=== PATIENT | male | born 1980 | race Caucasian/White ===

== ENCOUNTER → 2017-06-16 | Outpatient (CLI) | payer MEDICAID ==
[2017-06-16 10:46] LABS: Basophils % (A) 0 %; CH 31.3; CHCM 33.7; Eosinophils # (A) 0.1 k/uL (0-0.7); Eosinophils % (A) 1 %; HCT 49.2 % (39.0-53.0); HDW 2.48; HGB 16.3 gm/dL (13.0-17.5); Luc # (Auto) 0.16; Luc % (Auto) 2; Lymphocytes # (A) 2.7 k/uL (1.0-4.8); Lymphocytes % (A) 40 %; MCH 30.8 pg (25.0-35.0); MCHC 33.1 g/dL (31.0-37.0); MCV 93.2 fL (80.0-100.0); Mean Platelet Volume 7.2; Monocytes # (A) 0.3 k/uL (0-1.0); Monocytes % (A) 5 %; Neutrophils # (A) 3.5 k/uL (1.3-7.7); Neutrophils % (A) 51 %; RBC 5.27 m/uL (4.30-5.90); RDW 12.3 % (11.5-15.5); WBC 6.8 k/uL (3.8-10.6); WBC (Perox) 6.64
[2017-06-16 10:49] LABS: ALT 50 U/L (21-72); AST 28 U/L (17-59); Alkaline Phosphatase 66 U/L (38-126); Anion Gap 10 mmol/L; Blood Urea Nitrogen 15 mg/dL (9-20); Calcium 9.5 mg/dL (8.4-10.2); Carbon Dioxide 28 mmol/L (22-30); Chloride 104 mmol/L (98-107); Cholesterol 206 mg/dL (<200); Glucose 81 mg/dL (74-99); HDL Cholesterol 45 mg/dL (40-60); Non-African American GFR(MDRD) >60 (>60 ml/min/1.73 sqM); Potassium 4.7 mmol/L (3.5-5.1); Sodium 142 mmol/L (137-145); Total Protein 7.5 g/dL (6.3-8.2)
== END | disposition home or self-care (01) ==
LOC: LABWHC1 09:44
PROVIDERS: ATTEND Family Medicine
DX: Z00.00 Encounter for general adult medical examination without abnormal findings (principal)
CPT/HCPCS: 36415; 80053; 80061; 82306; 84443; 85025

== ENCOUNTER → 2024-07-19 | Outpatient (CLI) | payer MEDICAID ==
--- NOTE | 2024-07-19 21:10 | CT ---
EXAMINATION TYPE: CT kidney stone wo con DATE OF EXAM: 07/19/2024 COMPARISON: None INDICATION: Left side flank pain. Suspected renal stone. Hx of Renal stones. DLP: 640.5 mGycm, Automated exposure control for dose reduction was used. CONTRAST: 0 mL of Isovue 300. Study performed without Oral Contrast TECHNIQUE: Axial images were obtained from above the diaphragm to the pubic rami in the axial plane a t 5 mm thick sections. Reconstructed images are reviewed on the computer in the coronal plane. FINDINGS: Limited CT sections are obtained the lung bases. The lung bases are clear. CT ABDOMEN: Adjacent to the aorta at the level of the inferior pole left kidney is a cystlike structu re measuring 2.5 cm and 4 Hounsfield units. Mesenteric cyst could be considered. Recommend additional evaluation with ultrasound. Liver: Normal Spleen: Normal Pancreas: Normal Adrenal glands: The adrenal glands are normal. Gallbladder: Normal Kidneys: No masses are evident. No hydronephrosis is present. There is a 4.3 cm cyst measuring 4 Ho unsfield units of 4.3 cm a superior pole right kidney. There is a 0.3 cm nonobstructing renal calcif ication at the superior pole left kidney. There is a 0.2 cm calcification mid posterior left kidney. Aorta: Normal Inferior vena cava: Normal. CT PELVIS: Loops of bowel within the abdomen and pelvis are normal. This study is without oral contrast limi ts the bowel evaluation. Appendix: Normal as visualized. Urinary bladder: Normal. Genitourinary structures: Prostate is enlarged and contains calcification. Osseous structures: No suspicious lytic or sclerotic lesions. IMPRESSION: 1. Punctate nonobstructing left renal stones. No hydronephrosis or hydroureter evident. 2. There is a periaortic cystlike structure at the level of the inferior pole left kidney. Mesenteric cyst could be considered. Recommend additional workup with ultrasound. Abdomen MRI could be performe d. [facility], Workstation: [facility], 07/19/2024 9:07 PM
== END | disposition home or self-care (01) ==
LOC: RADCTMAIN 15:28
PROVIDERS: ATTEND Internal Medicine
CPT/HCPCS: 74176

== ENCOUNTER → 2025-01-22 | Day surgery (SDC) | payer MEDICAID ==
[~2025-01-22] MED LIST: LIDOCAINE 1% (10MG/ML) FOR IV START INTRADERMA PRN; LIDOCAINE 1% INJ 10MG/ML (20 ML MDV) ONE; PROPOFOL 10 MG/ML 20 ML VIAL IV ONE
[2025-01-22 08:52] VITALS: TEMP 98
[2025-01-22] MEDS: IV FLUID CONTINUATION 1,000 ML IV ONE (08:58)
[2025-01-22] MEDS: LACTATED RINGERS 1,000 ML IV SCH (08:59)
--- NOTE | 2025-01-22 09:19 | P.GSHP ---
History of Present Illness H&P Date: 01/22/25 Chief Complaint: Colon cancer screening 44-year-old male here for colonoscopy. He has not had 1 previously. No bowel complaints. No family history of colon cancer. Past Medical History Additional Past Medical History / Comment(s): kidney stones History of Any Multi-Drug Resistant Organisms: None Reported Past Surgical History: No Surgical Hx Reported Additional Past Surgical History / Comment(s): pilonidal cyst removed Past Anesthesia/Blood Transfusion Reactions: No Reported Reaction Smoking Status: Never smoker Medications and Allergies Home Medications Medication Instructions Recorded Confirmed Type Escitalopram [Lexapro] 20 mg PO DAILY 01/21/25 01/22/25 History Allergies Allergy/AdvReac Type Severity Reaction Status Date / Time No Known Allergies Allergy Verified 01/22/25 08:40 Surgical - Exam Vital Signs Temp Pulse Resp BP Pulse Ox 98.0 F 70 16 116/73 95 01/22/25 08:45 01/22/25 08:45 01/22/25 08:45 01/22/25 08:45 01/22/25 08:45 Physical exam: General: Well-developed, well-nourished HEENT: Normocephalic, sclerae nonicteric Abdomen: Nontender, nondistended Extremities: No edema Neuro: Alert and oriented Assessment and Plan (1) Colon cancer screening Narrative/Plan: Will proceed with colonoscopy at this time Current Visit: Yes Status: Acute Code(s): Z12.11 - ENCOUNTER FOR SCREENING FOR MALIGNANT NEOPLASM OF COLON SNOMED Code(s): 863441098
--- NOTE | 2025-01-22 09:43 | P.PCN ---
Date of Procedure: 01/22/25 Procedure(s) Performed: PREOPERATIVE DIAGNOSIS: Colon cancer screening POSTOPERATIVE DIAGNOSIS: Ileocecal valve polyp PROCEDURE: Colonoscopy with snare polypectomy and clip placement ANESTHESIA: MAC SURGEON: Rudy Velasquez M.D. SPECIMENS: Polyp ENDOSCOPIC PROCEDURE: The patient was placed on the endoscopy table in the left decubitus position. The Olympus colonoscope was inserted into the anus and passed under direct visualization to the base of the cecum. The appendiceal orifice was visualized. From that point the scope was slowly withdrawn inspecting all surfaces carefully. There was noted to be a 8 mm sessile polyp on the ileocecal valve itself. This was removed in 2 pieces using the snare with cautery technique. There was a small amount of oozing there and given its location a clip was deployed to help prevent any post polypectomy bleeding. No bleeding was seen after clip was deployed. The remainder of the cecum ascending transverse descending sigmoid and rectum appeared normal. There was no visible diverticulosis. Digital rectal examination was normal. The patient was taken to the recovery room in stable condition per anesthesia guidelines. RECOMMENDATIONS: Await biopsy results. Will contact patient with timing of next colonoscopy.
[2025-01-22 10:08] VITALS: BP 115/75; PULSE 63; RESP 16
== END ==
LOC: ORWHC2ENDO 08:24
PROVIDERS: ATTEND Surgery
DX: Z12.11 Encounter for screening for malignant neoplasm of colon (principal); D12.0 Benign neoplasm of cecum; F32.A Depression, unspecified; Z79.899 Other long term (current) drug therapy
CPT/HCPCS: 45385; J2003; J2704; 88305